=== PATIENT | female | born 1995 | race African-American/Black ===

== ENCOUNTER 2016-11-12 18:35 | Emergency (ER) | payer MEDICAID ==
[~2016-11-12] VITALS: Ht 162.6 cm; Wt 90.7 kg
[2016-11-12] MEDS ORDERED: KETOROLAC TROMETHAMINE 30 MG INJ IM ONE (19:00)
[2016-11-12] MEDS ORDERED: KETOROLAC TROMETHAMINE 30 MG INJ ONE (19:06)
[2016-11-12] MEDS ORDERED: HYDROCODONE/APAP 5-325MG TABLET PO ONE (19:45)
[2016-11-12] MEDS ORDERED: HYDROCODONE/APAP 5-325MG TABLET ONE (19:49)
[2016-11-12] MEDS ORDERED: ONDANSETRON 4 MG/2 ML VIAL IV ONE (20:45)
[2016-11-12] MEDS ORDERED: MORPHINE SULFATE 4 MG/1 ML DISP.SYRIN IV ONE (20:45)
[2016-11-12] MEDS ORDERED: ONDANSETRON 4 MG/2 ML VIAL ONE (21:11)
[2016-11-12] MEDS ORDERED: MORPHINE SULFATE 4 MG/1 ML DISP.SYRIN ONE (21:11)
[2016-11-12 21:19] LABS: CALCIUM 8.8 mg/dL (8.5-10.1); CREATININE 0.7 mg/dL (0.6-1.3)
[2016-11-12 21:21] LABS: BASOPHILS # (AUTO) 0.1 K/uL (0.0-0.2); BASOPHILS % (AUTO) 1.1 % (0.0-2.0); EOSINOPHILS # (AUTO) 0.2 K/uL (0.0-0.7); EOSINOPHILS % (AUTO) 2.4 % (0.0-7.0); HEMATOCRIT 39.3 % (37.0-47.0); HEMOGLOBIN 13.3 g/dL (12.0-16.0); LYMPHOCYTES # (AUTO) 3.5 K/uL (0.8-4.8); LYMPHOCYTES % (AUTO) 39.1 % (20.5-51.5); MEAN CORPUSCULAR HEMOGLOBIN 28.2 uug (27.0-31.0); MEAN CORPUSCULAR HGB CONC 34 g/dL (32.0-37.0); MEAN CORPUSCULAR VOLUME 83.1 fL (81.0-99.0); MONOCYTES # (AUTO) 0.4 K/uL (0.1-1.30); MONOCYTES % (AUTO) 4.7 % (0.0-11.0); NEUTROPHILS # (AUTO) 4.6 K/uL (1.8-8.9); NEUTROPHILS % (AUTO) 52.7 % (38.5-71.5); PLATELET COUNT (AUTO) 312 K/uL (150-450); RED BLOOD CELL COUNT(AUTO) 4.72 MIL/uL (4.20-5.40); RED CELL DISTRIBUTION WIDTH 12.8 % (11.5-14.5); WHITE BLOOD COUNT (AUTO) 8.8 K/uL (4.0-11.2)
[2016-11-12 21:24] LABS: ALBUMIN 3.7 g/dL (3.4-5.0); BILIRUBIN,TOTAL 0.4 mg/dL (0.2-1.0); TOTAL PROTEIN, SERUM 7.1 g/dL (6.4-8.2)
--- NOTE | 2016-11-12 22:23 | NUR ---
PATIENT CAME BACK FROM LUMBAR XRAY.
--- NOTE | 2016-11-12 22:50 | NUR ---
Patient brought to bathroom via wheelchair and ambulated to restroom with assistance from nurse. Patient had weakness when walking out of restroom, but was assisted back to wheelchair and back to bed.
[2016-11-13] MEDS ORDERED: HYDROMORPHONE 1 MG/1 ML DISP.SYRIN IM ONE (00:30)
[2016-11-13] MEDS ORDERED: HYDROMORPHONE 1 MG/1 ML DISP.SYRIN ONE (00:40)
[2016-11-13 00:55] VITALS: BP 115/70
--- NOTE | 2016-11-13 00:57 | NUR ---
Patient discharged to home in stable conditon. Patient ambulated out of ER stable gait, vss, no c/o: SOB, bleeding, dizzness, chest pain, etc. Written and verbal after care instructions given. Patient verbalizes understanding of instructions.
== END 2016-11-13 00:57 | disposition home or self-care (01) ==
LOC: ER 18:35
DX: M54.5 Low back pain (principal); Z59.0 Homelessness
CPT/HCPCS: 36415; 71010; 72100; 84703; 85025; 93005; A4663; J1170; J1885; J2270; J2405